=== PATIENT | female | born 1980 | race Hispanic/Latino ===

== ENCOUNTER 2018-11-18 09:49 | Emergency (ER) | payer OTHER ==
[2018-11-18] MEDS ORDERED: TORADOL IV ONE (10:45)
[2018-11-18 10:46] LABS: Hematocrit 32.9 % (30.3-42.9); Mean Corpuscular HGB Conc 34 % (30-34); Mean Corpuscular Volume 89 fl (79-97); Platelet Count 258 K/mm3 (140-440); Red Cell Distribution Width 17.7 % (13.2-15.2)
--- NOTE | 2018-11-18 11:10 | Emergency Department Report ---
ED Seizure HPI - General Chief Complaint: Seizure Stated Complaint: SEIZURE Time Seen by Provider: 11/18/18 10:28 Source: patient, EMS Mode of arrival: Stretcher Limitations: No Limitations - History of Present Illness Initial Comments: 38-year-old female has depression and alcohol abuse presents to the hospital from [facility] program at [place] with for seizure. Patient states she's had a seizure in the past secondary to alcohol withdrawal and denies primary seizure disorder. Patient has been in the [facility] outpatient psychiatric program at [place] for the past 2 weeks. Prior to that she received inpatient detox at [place] and was treated with alcohol withdrawal medication. She states currently she is on Seroquel, Vistaril, and prazosin. Today she had her first dose of Lexapro. She is not currently on Ativan or Librium - Related Data Allergies Allergy/AdvReac Type Severity Reaction Status Date / Time Sulfa (Sulfonamide Allergy Nausea Verified 11/18/18 10:15 Antibiotics) ED Review of Systems ROS: Stated complaint: SEIZURE Other details as noted in HPI Comment: All other systems reviewed and negative ED Past Medical Hx - Past Medical History Previous Medical History?: Yes Hx Psychiatric Treatment: Yes (Depression, ETOH) - Surgical History Past Surgical History?: Yes Hx Cholecystectomy: Yes Additional Surgical History: hysterectomy, gastric bypass, multiple exploratory abdominal surgeries. - Social History Smoking Status: Current Every Day Smoker Substance Use Type: Alcohol ED Physical Exam - General Limitations: No Limitations - Other Other exam information: General: No limitations, patient is alert in no acute distress Head exam: Atraumatic, normocephalic Eyes exam: Normal appearance, pupils equal and reactive to light ENT: Moist mucous membrane, mild abrasion to tongue Neck exam: Normal inspection, full range of motion, no meningismus, no midline tenderness, left-sided paracervical and trapezius muscle tenderness Respiratory exam: Clear to auscultation bilateral, no wheezes, rales, crackles Cardiovascular: Normal rate and rhythm, normal heart sounds Abdomen: Soft, nondistended, and nontender, with normal bowel sounds, no rebound, or guarding Extremity: Full range of motion normal inspection no deformity Back: Normal Inspection, full range of motion, no tenderness Neurologic: Alert, oriented x3, cranial nerves intact, no motor or sensory defi cit Psychiatric: normal affect, normal mood Skin: Warm, dry, intact ED Course Vital Signs 11/18/18 11/18/18 11/18/18 10:11 10:30 10:46 Temperature 98.1 F Pulse Rate 86 83 80 Respiratory 16 13 16 Rate Blood Pressure 110/65 106/69 106/69 O2 Sat by Pulse 99 100 100 Oximetry 11/18/18 11/18/18 11/18/18 11:28 11:30 11:46 Temperature Pulse Rate 81 75 80 Respiratory 16 13 21 Rate Blood Pressure 106/69 132/73 126/81 O2 Sat by Pulse 100 100 Oximetry 11/18/18 11/18/18 11/18/18 12:00 12:16 12:30 Temperature Pulse Rate 75 80 79 Respiratory 16 14 18 Rate Blood Pressure 100/76 126/81 109/79 O2 Sat by Pulse 100 100 100 Oximetry 11/18/18 12:46 Temperature Pulse Rate 90 Respiratory 21 Rate Blood Pressure 100/76 O2 Sat by Pulse 100 Oximetry - Consultations Consultation #1: 11/18/18 11:[address] Sanchez neurology. Does not recommend meds at this time. Recommend outpatient follow-up for EEG is neurologically back to normal and ED workup unremarkable ED Medical Decision Making - Lab Data Result diagrams: 11/18/18 10:22 11/18/18 10:22 Lab Results 11/18/18 11/18/18 11/18/18 Range/Units 10:22 10:22 10:26 WBC 8.4 (4.5-11.0) K/mm3 RBC 3.70 (3.65-5.03) M/mm3 Hgb 11.0 (10.1-14.3) gm/dl Hct 32.9 (30.3-42.9) % MCV 89 (79-97) fl MCH 30 (28-32) pg MCHC 34 (30-34) % RDW 17.7 H (13.2-15.2) % Plt Count 258 (140-440) K/mm3 Sodium 142 (137-145) mmol/L Potassium 4.4 (3.6-5.0) mmol/L Chloride 106.8 (98-107) mmol/L Carbon Dioxide 23 (22-30) mmol/L Anion Gap 17 mmol/L BUN 9 (7-17) mg/dL Creatinine 0.7 (0.7-1.2) mg/dL Estimated GFR > 60 ml/min BUN/Creatinine Ratio 13 % Glucose 88 (65-100) mg/dL POC Glucose 88 (70-105) Calcium 8.9 (8.4-10.2) mg/dL Magnesium 1.90 (1.7-2.3) mg/dL Plasma/Serum Alcohol (0-0.07) % 11/18/18 Range/Units 11:13 WBC (4.5-11.0) K/mm3 RBC (3.65-5.03) M/mm3 Hgb (10.1-14.3) gm/dl Hct (30.3-42.9) % MCV (79-97) fl MCH (28-32) pg MCHC (30-34) % RDW (13.2-15.2) % Plt Count (140-440) K/mm3 Sodium (137-145) mmol/L Potassium (3.6-5.0) mmol/L Chloride (98-107) mmol/L Carbon Dioxide (22-30) mmol/L Anion Gap mmol/L BUN (7-17) mg/dL Creatinine (0.7-1.2) mg/dL Estimated GFR ml/min BUN/Creatinine Ratio % Glucose (65-100) mg/dL POC Glucose (70-105) Calcium (8.4-10.2) mg/dL Magnesium (1.7-2.3) mg/dL Plasma/Serum Alcohol < 0.01 (0-0.07) % - EKG Data -: EKG Interpreted by Vt EKG shows normal: sinus rhythm, axis (qrs 58), QRS complexes (qrsd 79), ST-T waves (no stemi/t inv) Rate: normal (86) - Radiology Data Radiology results: report reviewed CT CERVICAL SPINE WITHOUT CONTRAST INDICATION / CLINICAL INFORMATION: neck pain after seizure and fall. TECHNIQUE: Axial CT images were obtained through the cervical spine. Sagittal and coronal reformatted images were produced. All CT scans at this location are performed using CT dose reduction for ALARA by means of automated exposure control. COMPARISON: None available. FINDINGS: OVERVIEW: There is no indication of fracture or traumatic subluxation. ALIGNMENT: There is a mild S-shaped curvature of the cervical spine in the coronal plane without definite evidence of scoliosis. Loss of the normal cervical lordosis is noted. No additional abnormalities of alignment are identified. VERTEBRAE: No significant abnormality. DISC SPACES: Disc height is fairly well maintained throughout the cervical region.. INDIVIDUAL LEVEL ANALYSIS: C2-3:No abnormality. C3-4:No abnormality. C4-5:No abnormality. C5-6:No abnormality. C6-7: Mild anterior osteophyte formation is noted. No additional abnormality. C7-T1:No abnormality. CRANIOCERVICAL JUNCTION:No significant abnormality. SPINAL CANAL: No indication of central canal stenosis. PARASPINAL SOFT TISSUES: No significant abnormality. LUNG APICES: No significant abnormality of visualized lungs. IMPRESSION: 1. No indication of fracture or traumatic subluxation. 2. No indication of central canal stenosis or neuroforaminal narrowing. CT head/brain wo con INDICATION: smith after sz and head injury. 38-year-old female TECHNIQUE: Routine CT head without contrast. All CT scans at this location are performed using CT dose reduction for ALARA by means of automated exposure control. COMPARISON: None. FINDINGS: BRAIN / INTRACRANIAL CONTENTS: No acute hemorrhage, mass effect, midline shift, hydrocephalus, or acute, large territorial infarct. No chronic infarct or focal atrophy. Normal brain volume and v entricular/sulcal size for age. No significant white matter abnormality. CRANIOCERVICAL JUNCTION: No significant abnormality. ORBITS: No significant abnormality of visualized orbits. SINUSES / MASTOIDS: No significant abnormality of the visualized paranasal sinuses or mastoid air cells. ADDITIONAL FINDINGS: None. IMPRESSION: 1. No focal mass, hemorrhage, hydrocephalus, or acute, large territorial infarct - Medical Decision Making She did receive Ativan because she was anxious prior to CAT scan. Differential includes alcohol withdrawal seizure versus primary seizure disorder. Patient will need outpatient neurology evaluation and EEG. No meds prescribed at this time. ED workup unremarkable. Patient encouraged not to drive until cleared by neurology. The side effect profile for Lexapro indicates that it can cause seizures. - Differential Diagnosis seizure, alcohol withdrawal, electrolyte abnormality Critical Care Time: No Critical care attestation.: If time is entered above; I have spent that time in minutes in the direct care of this critically ill patient, excluding procedure time. ED Disposition Clinical Impression: Seizure, History of alcohol dependence Disposition: DC-01 TO HOME OR SELFCARE Is pt being admited?: No Does the pt Need Aspirin: No Condition: Stable Instructions: Recurrent Seizures Adult (ED), Abuse of Alcohol (ED) Additional Instructions: Take the medication as prescribed. Follow up with your doctor or the clinic/doctor provided. Return if symptoms worsen as indicated by your discharge instructions. You need outpatient workup and evaluation by a ne urologist to determine if you have a primary seizure disorder or if your seizures are related to alcohol withdrawal. Do not drive until you are cleared by neurology. Also consider discontinuing the Lexapro since it can cause seizures and have your psychiatrist consider an alternative medication for depression. Referrals: CLARY JUAN MD [Staff Physician] - 3-5 Days (Neurology) CHRISTINE GRANGER MD [Staff Physician] - 3-5 Days (Neurology) [facility] [Provider Group] - 3-5 Days (Primary care clinic) JULY HARRIS MD [Primary Care Provider] - 3-5 Days (Primary care doctor) Time of Disposition: 13:17
[2018-11-18] MEDS ORDERED: ATIVAN IV ONE (11:12)
[2018-11-18] MEDS ORDERED: ATIVAN ONE (11:15)
[2018-11-18 11:30] LABS: BUN/Creatinine Ratio 13; Blood Urea Nitrogen 9 mg/dL (7-17); Calcium 8.9 mg/dL (8.4-10.2); Hemolysis Index 10
--- NOTE | 2018-11-18 11:55 | Cat Scan Report ---
CT head/brain wo con INDICATION: smith after sz and head injury. 38-year-old female TECHNIQUE: Routine CT head without contrast. All CT scans at this location are performed using CT dos e reduction for ALARA by means of automated exposure control. COMPARISON: None. FINDINGS: BRAIN / INTRACRANIAL CONTENTS: No acute hemorrhage, mass effect, midline shift, hydrocephalus, or acu te, large territorial infarct. No chronic infarct or focal atrophy. Normal brain volume and ventricul ar/sulcal size for age. No significant white matter abnormality. CRANIOCERVICAL JUNCTION: No significant abnormality. ORBITS: No significant abnormality of visualized orbits. SINUSES / MASTOIDS: No significant abnormality of the visualized paranasal sinuses or mastoid air erika ls. ADDITIONAL FINDINGS: None. IMPRESSION: 1. No focal mass, hemorrhage, hydrocephalus, or acute, large territorial infarct. Signer Name: Mundo Connell MD, III Signed: 11/18/2018 11:37 AM Workstation Name: [id number]
--- NOTE | 2018-11-18 11:55 | Cat Scan Report ---
CT CERVICAL SPINE WITHOUT CONTRAST INDICATION / CLINICAL INFORMATION: neck pain after seizure and fall. TECHNIQUE: Axial CT images were obtained through the cervical spine. Sagittal and coronal reformatted images wer e produced. All CT scans at this location are performed using CT dose reduction for ALARA by means of automated exposure control. COMPARISON: None available. FINDINGS: OVERVIEW: There is no indication of fracture or traumatic subluxation. ALIGNMENT: There is a mild S-shaped curvature of the cervical spine in the coronal plane without defi nite evidence of scoliosis. Loss of the normal cervical lordosis is noted. No additional abnormalitie s of alignment are identified. VERTEBRAE: No significant abnormality. DISC SPACES: Disc height is fairly well maintained throughout the cervical region.. INDIVIDUAL LEVEL ANALYSIS: C2-3:No abnormality. C3-4:No abnormality. C4-5:No abnormality. C5-6:No abnormality. C6-7: Mild anterior osteophyte formation is noted. No additional abnormality. C7-T1:No abnormality. CRANIOCERVICAL JUNCTION:No significant abnormality. SPINAL CANAL: No indication of central canal stenosis. PARASPINAL SOFT TISSUES: No significant abnormality. LUNG APICES: No significant abnormality of visualized lungs. IMPRESSION: 1. No indication of fracture or traumatic subluxation. 2. No indication of central canal stenosis or neuroforaminal narrowing. Signer Name: Hermelindo Flowers MD Signed: 11/18/2018 11:38 AM Workstation Name: [id number]
[2018-11-18 12:58] VITALS: BP 100/76
== END 2018-11-18 13:00 | disposition home or self-care (01) ==
LOC: ED 09:49
DX: R56.9 Unspecified convulsions (principal); F10.230 Alcohol dependence with withdrawal, uncomplicated; F32.9 Major depressive disorder, single episode, unspecified; F17.200 Nicotine dependence, unspecified, uncomplicated; Z88.2 Allergy status to sulfonamides; Z90.49 Acquired absence of other specified parts of digestive tract; Z90.710 Acquired absence of both cervix and uterus; Z98.84 Bariatric surgery status; Z98.890 Other specified postprocedural states
CPT/HCPCS: 36415; 70450; 72125; 80048; 82962; 83735; 85027; 93005; 93010; 96374; 96375; 99285; G0480; J1885; J2060; 80320